=== PATIENT | female | born 1990 | race Hispanic/Latino ===

== ENCOUNTER 2018-03-07 02:36 | Emergency (ER) | payer OTHER ==
[2018-03-07 03:24] LABS: APPEARANCE,URINE Clear (CLEAR); BILIRUBIN,URINE Negative (NEGATIVE); COLOR,URINE Yellow (YELLOW); GLUCOSE, URINE (UA) Negative (NEGATIVE); KETONES,URINE Negative (NEGATIVE); LEUKOCYTE ESTERASE ,URINE Trace (NEGATIVE); NITRATE,URINE Positive (NEGATIVE); OCCULT BLOOD,URINE Negative (NEGATIVE); PROTEIN,URINE Negative (NEGATIVE)
[2018-03-07 03:25] LABS: HCG,QUAL RESULT NEGATIVE (NEGATIVE)
[2018-03-07 03:28] LABS: BASOPHILS % (AUTO) 0.3 % (0.0-5.0); EOSINOPHILS % (AUTO) 0.9 % (0.0-8.0); HEMATOCRIT 35.2 % (36-48); LYMPHOCYTES % (AUTO) 28.6 % (21.0-51.0); MEAN CORPUSCULAR HEMOGLOBIN 28.6 pg (27.0-33.0); MEAN CORPUSCULAR HGB CONC 32.5 g/dL (32.0-36.0); MEAN CORPUSCULAR VOLUME 87.9 fL (79-99); MONOCYTES % (AUTO) 7.4 % (3.0-13.0); NEUTROPHILS % (AUTO) 62.8 % (40.0-77.0); NUCLEATED RED BLOOD CELLS 0.1 % (0.0-0.19); PLATELET COUNT (AUTO) 294 K/uL (130-400); RED CELL DISTRIBUTION WIDTH 13.6 % (11.0-15.5); WHITE BLOOD COUNT (AUTO) 10.3 K/uL (4.8-10.8)
[2018-03-07 03:30] LABS: AMPHET/METH SCREEN,URINE NEGATIVE (NEGATIVE); BARBITURATE SCREEN, URINE NEGATIVE (NEGATIVE); BENZODIAZEPINES SCREEN,URINE NEGATIVE (NEGATIVE); CANNABINOID SCREEN,URINE NEGATIVE (NEGATIVE); COCAINE SCREEN,URINE NEGATIVE (NEGATIVE); OPIATE SCREEN,URINE NEGATIVE (NEGATIVE); PHENCYCLIDINE SCREEN,URINE NEGATIVE (NEGATIVE)
[2018-03-07 03:38] LABS: BACTERIA,URINE Many /HPF (None Seen); RBC,URINE None Seen /HPF (0-1); SQUAMOUS EPITHELIAL CELL,UR 0-2 /HPF (0-2); WBC,URINE 0-1 /HPF (0-1)
[2018-03-07 03:41] LABS: CREATININE 0.7 mg/dL (0.5-1.5); POTASSIUM 4.3 mmol/L (3.5-5.1)
[2018-03-07 03:42] LABS: INR 0.91 (0.85-1.15); PARTIAL THROMBOPLASTIN TIME 27.9 SEC (26.3-35.5); PROTHROMBIN TIME 9.6 SEC (9.6-11.6)
[2018-03-07 03:45] LABS: ALBUMIN 3.6 g/dL (3.5-5.0); BILIRUBIN,TOTAL 0.3 mg/dL (0.2-1.0); TOTAL PROTEIN, SERUM 7.2 g/dL (6.0-8.3)
[2018-03-07] MEDS ORDERED: DiphenhydrAMINE HCL 50 MG/ML VIAL ONE (04:05)
[2018-03-07] MEDS ORDERED: FAMOTIDINE/PF 20 MG/2 ML VIAL IV ONE (04:05)
== END 2018-03-07 04:44 | disposition home or self-care (01) ==
LOC: EDH 02:36
DX: R06.02 Shortness of breath (principal); R11.2 Nausea with vomiting, unspecified; R50.9 Fever, unspecified; Z88.0 Allergy status to penicillin
CPT/HCPCS: 36415; 71045; 80053; 80305; 81001; 81025; 82150; 82550; 83690; 84484; 85025; 85610; 85730; 93005; 96374; 96375; 99284; J1200; J3490

== ENCOUNTER 2018-04-17 13:49 | Emergency (ER) | payer OTHER ==
[2018-04-17] MEDS ORDERED: IPRATROPIUM/ALBUTEROL SULFATE 3 ML SOLUTION IH ONE (15:36)
[2018-04-17] MEDS ORDERED: DEXAMETHASONE SOD PHOSPHATE 10MG/ML 1ML VIAL ONE (15:44)
[2018-04-17] MEDS ORDERED: KETOROLAC TROMETHAMINE 60 MG/2 ML VIAL ONE (15:45)
== END 2018-04-17 16:02 | disposition home or self-care (01) ==
LOC: EDH 13:49
DX: J20.9 Acute bronchitis, unspecified (principal); Z88.0 Allergy status to penicillin
CPT/HCPCS: 81025; 94640; 96372 ×2; 99283; J1100; J1885

== ENCOUNTER 2018-05-10 22:26 | Emergency (ER) | payer OTHER ==
[2018-05-10 23:38] LABS: RAPID GROUP A STREP NEGATIVE (NEGATIVE)
[2018-05-11] MEDS ORDERED: DEXAMETHASONE SOD PHOSPHATE 10MG/ML 1ML VIAL ONE (00:08)
[2018-05-11] MEDS ORDERED: KETOROLAC TROMETHAMINE 60 MG/2 ML VIAL ONE (00:09)
== END 2018-05-11 00:42 | disposition home or self-care (01) ==
LOC: EDH 22:26
DX: J02.9 Acute pharyngitis, unspecified (principal); Z88.0 Allergy status to penicillin
CPT/HCPCS: 81025; 87804 ×2; 87880; 99283; J1100; J1885

== ENCOUNTER 2018-12-02 17:54 | Emergency (ER) | payer OTHER ==
[2018-12-02] MEDS ORDERED: DEXAMETHASONE SOD PHOSPHATE 10MG/ML 1ML VIAL ONE (18:15)
== END 2018-12-02 18:55 | disposition home or self-care (01) ==
LOC: EDH 17:54
DX: J01.90 Acute sinusitis, unspecified (principal); B96.89 Other specified bacterial agents as the cause of diseases classified elsewhere; Z88.0 Allergy status to penicillin
CPT/HCPCS: 96372; 99283; J1100

== ENCOUNTER 2019-02-13 19:21 | Emergency (ER) | payer OTHER ==
[2019-02-13] MEDS ORDERED: ONDANSETRON ODT 4 MG TAB ONE (19:40)
[2019-02-13 19:55] LABS: APPEARANCE,URINE Clear (CLEAR); BILIRUBIN,URINE Negative (NEGATIVE); COLOR,URINE Yellow (YELLOW); GLUCOSE, URINE (UA) Negative (NEGATIVE); KETONES,URINE Negative (NEGATIVE); LEUKOCYTE ESTERASE ,URINE Negative (NEGATIVE); NITRATE,URINE Negative (NEGATIVE); OCCULT BLOOD,URINE Negative (NEGATIVE); PROTEIN,URINE Negative (NEGATIVE)
== END 2019-02-13 20:45 | disposition home or self-care (01) ==
LOC: EDH 19:21
DX: J20.9 Acute bronchitis, unspecified (principal); Z88.0 Allergy status to penicillin; Z72.0 Tobacco use
CPT/HCPCS: 71046; 81003; 87804

== ENCOUNTER 2019-06-05 18:54 | Emergency (ER) | payer MEDICAID, OTHER ==
[2019-06-05 19:50] LABS: BASOPHILS % (AUTO) 0.3 % (0.0-5.0); EOSINOPHILS % (AUTO) 0.8 % (0.0-8.0); HEMATOCRIT 34.1 % (36-48); LYMPHOCYTES % (AUTO) 24.2 % (21.0-51.0); MEAN CORPUSCULAR HEMOGLOBIN 28.4 pg (27.0-33.0); MEAN CORPUSCULAR HGB CONC 32.3 g/dL (32.0-36.0); MEAN CORPUSCULAR VOLUME 87.9 fL (79-99); MONOCYTES % (AUTO) 7.8 % (3.0-13.0); NEUTROPHILS % (AUTO) 66.6 % (40.0-77.0); PLATELET COUNT (AUTO) 283 K/uL (130-400); RED BLOOD CELL COUNT(AUTO) 3.88 MIL/uL (4.00-5.50); RED CELL DISTRIBUTION WIDTH 12.9 % (11.0-15.5); WHITE BLOOD COUNT (AUTO) 7.3 K/uL (4.8-10.8)
[2019-06-05 19:57] LABS: APPEARANCE,URINE Clear (CLEAR); BILIRUBIN,URINE Negative (NEGATIVE); COLOR,URINE Yellow (YELLOW); GLUCOSE, URINE (UA) 250 mg/dL (NEGATIVE); KETONES,URINE 40 mg/dL (NEGATIVE); LEUKOCYTE ESTERASE ,URINE Trace (NEGATIVE); NITRATE,URINE Positive (NEGATIVE); OCCULT BLOOD,URINE Negative (NEGATIVE); PROTEIN,URINE Negative (NEGATIVE)
[2019-06-05 20:02] LABS: HCG,QUAL RESULT POSITIVE (NEGATIVE)
[2019-06-05 20:09] LABS: CREATININE 0.7 mg/dL (0.5-1.5); POTASSIUM 3.5 mmol/L (3.5-5.1)
[2019-06-05 20:18] LABS: BACTERIA,URINE Many /HPF (None Seen); MUCUS,URINE None Seen LPF (None Seen); RBC,URINE None Seen /HPF (0-1); SQUAMOUS EPITHELIAL CELL,UR 0-2 /HPF (0-2); WBC,URINE 0-1 /HPF (0-1)
[2019-06-05 20:41] LABS: ALBUMIN 3.3 g/dL (3.5-5.0); BILIRUBIN,TOTAL 0.4 mg/dL (0.2-1.0); TOTAL PROTEIN, SERUM 6.9 g/dL (6.0-8.3)
== END 2019-06-05 22:10 | disposition home or self-care (01) ==
LOC: EDH 18:54
DX: O23.41 Unspecified infection of urinary tract in pregnancy, first trimester (principal); O99.341 Other mental disorders complicating pregnancy, first trimester; F41.1 Generalized anxiety disorder; Z88.0 Allergy status to penicillin; Z3A.01 Less than 8 weeks gestation of pregnancy
CPT/HCPCS: 36415; 76801; 80053; 81001; 81025; 83690; 84702; 85025; 87077; 87088; 87186

== ENCOUNTER 2019-10-09 20:40 | Observation (INO) | payer MEDICAID ==
[~2019-10-09] VITALS: Ht 149.9 cm; Wt 84.4 kg
[2019-10-09] MEDS ORDERED: LACTATED RINGERS 1000ML IV SCH (21:45)
[2019-10-09 21:47] LABS: APPEARANCE,URINE CLOUDY (CLEAR); BILIRUBIN,URINE SMALL (NEGATIVE); COLOR,URINE YELLOW (YELLOW); GLUCOSE, URINE (UA) NEGATIVE (NEGATIVE); KETONES,URINE 40 mg/dL (NEGATIVE); LEUKOCYTE ESTERASE ,URINE SMALL (NEGATIVE); NITRATE,URINE NEGATIVE (NEGATIVE); OCCULT BLOOD,URINE LARGE (NEGATIVE); PH,URINE 5.5 (5.0-8.0); PROTEIN,URINE 30 mg/dL (NEGATIVE)
[2019-10-09 21:56] LABS: RBC,URINE 0-1 /HPF (0-1)
[2019-10-09 21:57] LABS: BACTERIA,URINE Many /HPF (None Seen); SQUAMOUS EPITHELIAL CELL,UR Rare /HPF (0-2)
[2019-10-09] MEDS ORDERED: CLINDAMYCIN 900 MG/D5% WATER 50 ML IV SCH (22:45)
[2019-10-09] MEDS ORDERED: CLINDAMYCIN 900 MG/D5% WATER 50 ML IV ONE (22:47)
[2019-10-09 22:52] VITALS: BP 127/76
[2019-10-09] MEDS ORDERED: LACTATED RINGERS 1000ML 1,000 ML IV SCH (23:00)
[2019-10-09 23:30] LABS: AMPHET/METH SCREEN,URINE NEGATIVE (NEGATIVE); BARBITURATE SCREEN, URINE NEGATIVE (NEGATIVE); BENZODIAZEPINES SCREEN,URINE NEGATIVE (NEGATIVE); CANNABINOID SCREEN,URINE NEGATIVE (NEGATIVE); COCAINE SCREEN,URINE NEGATIVE (NEGATIVE); OPIATE SCREEN,URINE NEGATIVE (NEGATIVE); PHENCYCLIDINE SCREEN,URINE NEGATIVE (NEGATIVE)
== END 2019-10-10 00:25 | disposition home or self-care (01) ==
LOC: EDH 20:40 → LDH 20:56
PROVIDERS: ADMIT Obstetrics & Gynecology; ATTEND Obstetrics & Gynecology
DX: O62.9 Abnormality of forces of labor, unspecified (principal); O60.02 Preterm labor without delivery, second trimester; Z3A.24 24 weeks gestation of pregnancy
CPT/HCPCS: 80305; 81001; 87077; 87088; 87186; 96365; 99284; G0378 ×3; J3490; J7120; 96360

== ENCOUNTER → 2023-03-09 | Emergency (ER) | payer MEDICAID ==
[~2023-03-09] VITALS: Ht 149.9 cm; Wt 86.2 kg
[~2023-03-09] MED LIST: IBUP-2070 PO; SILV20CR11 TP
[2023-03-09 22:48] VITALS: BP 122/68; PULSE 68; RESP 20
== END ==
LOC: EDH 19:31
DX: M54.2 Cervicalgia (principal); Z53.21 Procedure and treatment not carried out due to patient leaving prior to being seen by health care provider
CPT/HCPCS: 99281

== ENCOUNTER 2023-03-11 01:10 | Emergency (ER) | payer MEDICAID ==
[~2023-03-11] VITALS: Ht 149.9 cm; Wt 86.2 kg
[2023-03-11 05:00] VITALS: BP 118/72; PULSE 72; RESP 16; O2SAT 99
== END 2023-03-11 05:15 | disposition home or self-care (01) ==
LOC: EDH 01:10
DX: S16.1XXA Strain of muscle, fascia and tendon at neck level, initial encounter (principal); Z88.0 Allergy status to penicillin; Z90.49 Acquired absence of other specified parts of digestive tract; W18.39XA Other fall on same level, initial encounter; Y93.89 Activity, other specified; Y92.89 Other specified places as the place of occurrence of the external cause; Y99.8 Other external cause status
CPT/HCPCS: 99282